=== PATIENT | female | born 2000 | race Caucasian/White ===

== ENCOUNTER → 2020-02-08 | Outpatient (CLI) | payer BC ==
--- NOTE | 2020-02-08 11:37 | US ---
EXAMINATION TYPE: US venous doppler duplex LE LT DATE OF EXAM: 02/08/2020 11:25 AM COMPARISON: NONE CLINICAL HISTORY: I80.9 Phlebitis and thrombophlebitis. Left foot pain SIDE PERFORMED: Left TECHNIQUE: The lower extremity deep venous system is examined utilizing real time linear array sonog lyric with graded compression, doppler sonography and color-flow sonography. VESSELS IMAGED: Common Femoral Vein Deep Femoral Vein Greater Saphenous Vein * Femoral Vein Popliteal Vein Small Saphenous Vein * Proximal Calf Veins (* superficial vessels) Left Leg: Negative for DVT IMPRESSION: 1. Left lower extremity ultrasound negative for deep venous thrombosis.
== END | disposition home or self-care (01) ==
LOC: RADUSWWP 11:00
PROVIDERS: ATTEND Orthopaedic Surgery Sports Medicine
DX: I80.3 Phlebitis and thrombophlebitis of lower extremities, unspecified (principal); M79.672 Pain in left foot; S93.692A Other sprain of left foot, initial encounter; M25.572 Pain in left ankle and joints of left foot

== ENCOUNTER 2020-10-05 23:11 | Emergency (ER) | payer OTHER, BC ==
[2020-10-05 23:20] VITALS: BP 121/74; PULSE 97; RESP 17; TEMP 98
--- NOTE | 2020-10-06 00:11 | ED ---
Upper Extremity HPI - General Chief Complaint: Extremity Injury, Upper Stated Complaint: IHS/Fall Time Seen by Provider: 10/05/20 23:18 Source: patient Mode of arrival: ambulatory Limitations: no limitations - History of Present Illness Initial Comments: This patient is a 20-year-old woman who states that she fell tonight onto her left shoulder resulting in pain to the shoulder she indicates overlying the clavicle. Patient denies weakness or numbness into the left upper extremity or hand. MD Complaint: Injury to:: left, shoulder -: hour(s) Other Extremity Injury: Shoulder: Left Other Injuries: none Handedness: right Place: work Improves With: immobilization Worsens With: movement of extremity Context: fall Associated Symptoms: denies other symptoms - Related Data Previous Rx's Medication Instructions Recorded Ibuprofen 800 mg PO TID #20 tablet 10/06/20 Allergies Allergy/AdvReac Type Severity Reaction Status Date / Time No Known Allergies Allergy Verified 10/05/20 23:20 Review of Systems ROS Statement: Those systems with pertinent positive or pertinent negative responses have been documented in the HPI. ROS Other: All systems not noted in ROS Statement are negative. Constitutional: Denies: weakness Eyes: Denies: vision change Respiratory: Denies: dyspnea Cardiovascular: Denies: chest pain, syncope Gastrointestinal: Denies: abdominal pain Musculoskeletal: Reports: as per HPI, arthralgia. Denies: back pain Skin: Denies: lesions Neurological: Denies: headache, weakness, numbness, paresthesias Past Medical History Past Medical History: No Reported History History of Any Multi-Drug Resistant Organisms: None Reported Past Surgical History: No Surgical Hx Reported Past Psychological History: Anxiety, Depression Smoking Status: Former smoker Past Alcohol Use History: Occasional Past Drug Use History: None Reported General Exam Limitations: no limitations General appearance: alert, in no apparent distress Head exam: Present: atraumatic, normocephalic Neck exam: Present: normal inspection, full ROM. Absent: tenderness Respiratory exam: Present: normal lung sounds bilaterally. Absent: respiratory distress, wheezes, rales, rhonchi, stridor, chest wall tenderness Left Shoulder Exam: Present: tenderness, other (Tenderness over the left clavicle.) Upper Arm exam: Present: normal inspection, full ROM. Absent: tenderness, swelling Elbow exam: Present: normal inspection, full ROM. Absent: tenderness, swelling Forearm Wrist exam: Present: normal inspection, full ROM. Absent: tenderness, swelling Hand Wrist exam: Present: normal inspection, full ROM. Absent: tenderness, swelling Neuro motor exam: Present: wrist extension intact, thumb opposition intact, thumb IP flexion intact, thumb adduction intact, fingers 2-5 abduction intact Neurosensory exam: Present: 2-point discrimination, radial nerve intact, ulnar nerve intact, median nerve intact Vascular: Present: normal capillary refill. Absent: vascular compromise Course Vital Signs 10/05/20 23:15 Temperature 98.0 F Pulse Rate 97 Respiratory 17 Rate Blood Pressure 121/74 O2 Sat by Pulse 99 Oximetry Disposition Clinical Impression: Shoulder injury Disposition: HOME SELF-CARE Condition: Good Instructions (If sedation given, give patient instructions): Shoulder Sprain (ED) Prescriptions: Ibuprofen 800 mg PO TID #20 tablet Is patient prescribed a controlled substance at d/c from ED?: No Referrals: Alen Barney MD [Primary Care Provider] - 1-2 days
--- NOTE | 2020-10-06 00:48 | XR ---
EXAMINATION TYPE: XR shoulder complete LT DATE OF EXAM: 10/06/2020 COMPARISON: NONE HISTORY: Fall. Pain. TECHNIQUE: 3 views FINDINGS: I see no fracture nor dislocation. Glenohumeral joint is intact. There is normal alignment of the AC joint. There are no pathologic calcifications. IMPRESSION: Negative left shoulder exam.
--- NOTE | 2020-10-06 00:49 | XR ---
EXAMINATION TYPE: XR clavicle LT DATE OF EXAM: 10/06/2020 COMPARISON: NONE HISTORY: Pain TECHNIQUE: 2 views FINDINGS: Clavicle appears intact. I see no fracture. The AC joint space measures 5.5 mm. IMPRESSION: Negative left clavicle exam.
== END 2020-10-06 01:49 | disposition home or self-care (01) ==
LOC: EC 23:11
DX: S49.92XA Unspecified injury of left shoulder and upper arm, initial encounter (principal); F32.9 Major depressive disorder, single episode, unspecified; F41.9 Anxiety disorder, unspecified; Z87.891 Personal history of nicotine dependence; W01.0XXA Fall on same level from slipping, tripping and stumbling without subsequent striking against object, initial encounter
CPT/HCPCS: 99284

== ENCOUNTER → 2022-10-31 | Outpatient (CLI) | payer BC ==
--- NOTE | 2022-10-31 15:42 | XR ---
EXAMINATION TYPE: XR humerus LT DATE OF EXAM: 10/31/2022 3:36 PM INDICATION: Patient age:Female; 22 years old; Reason for study: Z30.46 T85.698A; [facility]. COMPARISON: Left shoulder radiograph 10/06/2020 TECHNIQUE: The left humerus was examined in AP and lateral projections. FINDINGS: No evidence of acute osseous pathology, joint dislocation, or soft tissue swelling. Linear 2.8 cm foreign body demonstrated within the inner left upper soft tissues. This is at the mid humeral level. IMPRESSION: 1. No acute osseous pathology. 2. Linear 2.8 cm foreign body demonstrated within the inner soft tissues of the left upper extremity . This correlates with reported contraceptive device.
== END | disposition home or self-care (01) ==
LOC: RADXRMAIN 15:20
PROVIDERS: ATTEND Obstetrics & Gynecology
DX: T85.698A Other mechanical complication of other specified internal prosthetic devices, implants and grafts, initial encounter (principal); Z30.46 Encounter for surveillance of implantable subdermal contraceptive

== ENCOUNTER 2023-03-07 06:14 | Day surgery (SDC) | payer BC ==
--- NOTE | 2023-03-06 15:28 | P.GSHP ---
History of Present Illness H&P Date: 03/07/23 Chief Complaint: Left arm foreign body 22-year-old female had subcutaneous contraceptive device placed left upper arm several years ago. She is now interested in removal. Attempts at removal as an outpatient unsuccessful as it is unable to be palpated. Imaging shows it is fairly deep in the arm. No numbness or tingling. No pain. Past Medical History Past Medical History: No Reported History Additional Past Medical History / Comment(s): PCOS History of Any Multi-Drug Resistant Organisms: None Reported Past Surgical History: No Surgical Hx Reported Additional Past Surgical History / Comment(s): labiaplasty at 12 yrs age after fall at a pool Past Anesthesia/Blood Transfusion Reactions: No Reported Reaction Smoking Status: Former smoker Medications and Allergies Home Medications Medication Instructions Recorded Confirmed Type DULoxetine HCL 20 mg PO DAILY 03/04/23 03/04/23 History Sandie Fe 1.5/30 Mg/Mcg 1 tab PO HS 03/04/23 03/04/23 History Tirzepatide [Mounjaro] 7.5 mg SQ Q7D 03/04/23 03/04/23 History Allergies Allergy/AdvReac Type Severity Reaction Status Date / Time No Known Allergies Allergy Verified 03/04/23 15:38 Surgical - Exam Physical exam: General: Well-developed, well-nourished HEENT: Normocephalic, sclerae nonicteric Abdomen: Nontender, nondistended Extremities: No edema, left upper arm with no palpable subcutaneous device Neuro: Alert and oriented Assessment and Plan (1) Foreign body (FB) in soft tissue Narrative/Plan: 22-year-old female with left arm foreign body. We'll proceed with excision left arm foreign body with fluoroscopy. Risks of bleeding, infection, scarring, inability to removed, nerve injury, vascular injury, numbness, weakness. Patient understands and wishes to proceed. Status: Acute Code(s): M79.5 - RESIDUAL FOREIGN BODY IN SOFT TISSUE SNOMED Code(s): 974956565
[~2023-03-07 06:14] MED LIST: ACETAMINOPHEN TAB 500 MG TAB PO PRN; DEXAMETHASONE SOD PHOSPHATE 4 MG/ML 1 ML VIAL IV ONE; HEPARIN SODIUM,PORCINE 5,000 UNIT/ML 1 ML VIAL SQ PRN; LACTATED RINGERS 1,000 ML IV SCH; LIDOCAINE 1% (10MG/ML) FOR IV START INTRADERMA PRN; ONDANSETRON 4 MG/2 ML VIAL IVP ONE; Pre Op ABX Message 1 EACH MISC MISCELLANE ONE; SCOPOLAMINE 1 MG/72 HR PATCH TRANSDERM ONE; droPERidol 5 MG/2 ML VIAL IVP ONE
[2023-03-07 06:59] LABS: Glucose,Whole Blood 90 mg/dL (70-110)
[2023-03-07] MEDS ORDERED: HYDROmorphone 0.5 MG/0.5 ML SYRINGE IVP PRN (07:00)
[2023-03-07] MEDS ORDERED: SUCCINYLCHOLINE CHLORIDE 200 MG/10 ML VIAL IV ONE (07:21)
[2023-03-07] MEDS ORDERED: LIDOCAINE 1% INJ 10MG/ML (20 ML MDV) ONE (07:21)
[2023-03-07] MEDS ORDERED: PROPOFOL 10 MG/ML 20 ML VIAL IV ONE (07:21)
[2023-03-07] MEDS ORDERED: MIDAZOLAM 2 MG/2 ML VIAL ONE (07:21)
[2023-03-07] MEDS ORDERED: fentaNYL (PF) 50 MCG/ML 2 ML AMP ONE (07:21)
[2023-03-07] MEDS ORDERED: SODIUM CHLORIDE 0.9% 50 ML with ceFAZolin 2,000 MG IV ONE ×2 (07:27)
[2023-03-07 07:36] VITALS: RESP 16
[2023-03-07] MEDS ORDERED: BUPIVACAINE (PF) 0.25% 30 ML VIAL SQ ONE (08:07)
[2023-03-07] MEDS ORDERED: NALOXONE 0.4 MG/ML 1 ML VIAL IV PRN (08:27)
[2023-03-07] MEDS ORDERED: ACETAMINOPHEN TAB 325 MG TAB PO PRN (08:33)
--- NOTE | 2023-03-07 08:40 | P.OP ---
Date of Procedure: 03/07/23 Procedure(s) Performed: PREOPERATIVE DIAGNOSIS: Left arm foreign body POSTOPERATIVE DIAGNOSIS: Same PROCEDURE: Excision left arm foreign body with fluoroscopy SURGEON: Deborah EBL: 1 mL ANESTHESIA: Gen. COMPLICATIONS: None OPERATIVE PROCEDURE: Patient placed on the operating table in the supine position. Left arm prepped and draped sterilely. Using fluoroscopy I was able to identify the approximate location of the contraceptive device. A small incision was made overlying the distal aspect of the foreign body. Saphenous tissues were dissected. I was then able to palpate the device approximately 1.5 cm deep to the skin surface. This was able to be grasped and removed fully intact. Saphenous tissues closed using 3-0 Vicryl sutures. Skin closed using 4-0 Monocryl sutures. Skin glue was applied. DISPOSITION: Stable to recovery room
[2023-03-07 08:51] VITALS: TEMP 97
[2023-03-07 09:43] VITALS: BP 124/78; PULSE 83
--- NOTE | 2023-03-07 11:48 | FL ---
Intraoperative/procedural fluoroscopic services were provided. Total fluoroscopy time is 10.3 seconds with a total of 1 submitted images to PACS. Please see the operative/procedural note for further det ails. DAP: 0.2074 mGym2 Gycm2
== END 2023-03-07 09:46 | disposition home or self-care (01) ==
LOC: OR 06:14
PROVIDERS: ATTEND Surgery
DX: M60.222 Foreign body granuloma of soft tissue, not elsewhere classified, left upper arm (principal); F12.90 Cannabis use, unspecified, uncomplicated; K58.9 Irritable bowel syndrome, unspecified; Z87.891 Personal history of nicotine dependence; Z79.899 Other long term (current) drug therapy
CPT/HCPCS: 20520; 81025; J2250; J0330; J1644; J1100; J2405; J0690; J2001; J3010; J2704; J0665